=== PATIENT | female | born 1975 | race Hispanic/Latino ===

== ENCOUNTER 2018-07-10 08:42 | Outpatient (CLI) | payer BC ==
--- NOTE | 2018-07-10 10:05 | MRI ---
MRI LEFT FEMUR WITHOUT CONTRAST ENHANCEMENT: HISTORY: Femur pain x1 month. FINDINGS: The marrow signal change within the femur is normal. The knee is not included on this exam. These l arge field of view images of the femur, which included the hip region, do not show any definite hip a bnormality. If the patient is having pain that may be related to the hip region, a dedicated exam of this area would be suggested. The hamstring tendon origin appears normal. I do not see any type of muscle mass. There is no evide nce of any edema change within either the subcutaneous tissue or within the muscle compartments. IMPRESSION: Unremarkable MRI of left femur. POS: [facility]
== END 2018-07-10 08:43 | disposition home or self-care (01) ==
LOC: TBSIIMAG 08:42
PROVIDERS: ATTEND Pediatrics Sports Medicine
DX: M79.652 Pain in left thigh (principal)